=== PATIENT | female | born 2000 | race Hispanic/Latino ===

== ENCOUNTER 2022-02-18 20:37 | Emergency (ER) | payer SELFPAY ==
[2022-02-18 20:42] VITALS: BP 130/72; PULSE 57; RESP 16; TEMP 36.7; O2SAT 100
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
[2022-02-18] MEDS: ACETAMINOPHEN 500 MG TABLET 1000 MG PO (22:30)
== END 2022-02-18 22:51 | disposition home or self-care (01) ==
PROVIDERS: Emergency Provider Nurse Practitioner Family
DX: O9A.211 Injury, poisoning and certain other consequences of external causes complicating pregnancy, first trimester (principal); S13.4XXA Sprain of ligaments of cervical spine, initial encounter; S29.012A Strain of muscle and tendon of back wall of thorax, initial encounter; S39.012A Strain of muscle, fascia and tendon of lower back, initial encounter; Z3A.08 8 weeks gestation of pregnancy; V64 Occupant of heavy transport vehicle injured in collision with heavy transport vehicle or bus
CPT/HCPCS: 99283; A9270